=== PATIENT | female | born 1930 | race Caucasian/White ===

== ENCOUNTER 2016-08-02 22:17 | Emergency (ER) | payer MEDICARE ==
[~2016-08-02] VITALS: Ht 162.6 cm; Wt 52.3 kg
[2016-08-02] MEDS ORDERED: LISI-662 PO (22:42)
[2016-08-02] MEDS ORDERED: BUME0.5T11 PO (22:42)
[2016-08-02] MEDS ORDERED: RANI150T7 PO (22:42)
[2016-08-02] MEDS ORDERED: TEMA15CA PO (22:42)
[2016-08-02] MEDS ORDERED: PROZ10 PO (22:42)
[2016-08-02] MEDS ORDERED: HYDR-3965 PO (22:42)
[2016-08-02] MEDS ORDERED: GABA-531 PO (22:42)
[2016-08-02] MEDS ORDERED: CARV6 PO (22:42)
[2016-08-02] MEDS ORDERED: LORA-192 PO (22:42)
[2016-08-02] MEDS ORDERED: WARF2.5 PO (22:42)
[2016-08-02] MEDS ORDERED: DILT30 PO (22:42)
[2016-08-02 23:11] LABS: BASOPHILS # (AUTO) 0.04 K/uL (0.00-0.20); BASOPHILS % (AUTO) 0.4 % (0.0-2.0); EOSINOPHILS # (AUTO) 0.13 K/uL (0.00-0.70); EOSINOPHILS % (AUTO) 1.16 % (1.0-6.0); HEMATOCRIT 44.8 % (36-46); HEMOGLOBIN 14.5 g/dL (12.0-16.0); LYMPHOCYTES # (AUTO) 3.1 K/uL (1.0-4.8); LYMPHOCYTES % (AUTO) 27.2 % (22.0-44.0); MEAN CORPUSCULAR HEMOGLOBIN 30.8 pg (26.0-34.0); MEAN CORPUSCULAR HGB CONC 32.2 G/dL (31.0-37.0); MEAN CORPUSCULAR VOLUME 95 fL (80-100); MONOCYTES % (AUTO) 8.7 % (2.0-9.0); NEUTROPHILS # (AUTO) 7.2 K/uL (1.8-7.7); NEUTROPHILS % (AUTO) 62.6 % (40.0-70.0); PLATELET COUNT (AUTO) 156 K/uL (150-450); RED CELL DISTRIBUTION WIDTH 14.4 % (11.5-14.5); WHITE BLOOD COUNT (AUTO) 11.4 K/uL (4.5-11.0)
[2016-08-02 23:21] LABS: INR 3.1 (0.9-1.1); PROTHROMBIN TIME 33.1 SEC (9.4-11.6)
[2016-08-03] MEDS ORDERED: HYDROCODONE/ACETAMINOPHEN 5-325 MG TABLET PO ONE (00:15)
[2016-08-03] MEDS ORDERED: METOPROLOL TARTRATE 5 MG/5 ML VIAL IVP ONE (00:30)
[2016-08-03 01:25] VITALS: BP 140/69
== END 2016-08-03 01:36 | disposition home or self-care (01) ==
LOC: EMS 22:20
DX: R04.0 Epistaxis (principal); I10 Essential (primary) hypertension; E78.00 Pure hypercholesterolemia, unspecified
CPT/HCPCS: 36415; 85025; 85610; 96374; 99284; J3490